=== PATIENT | female | born 1985 | race Caucasian/White ===

== ENCOUNTER 2018-05-20 20:08 | Emergency (ER) | payer OTHER ==
[~2018-05-20] VITALS: Ht 167.6 cm; Wt 108.0 kg
[~2018-05-20 20:08] MED LIST: AMOXIL500 MG OR; NO HOME MEDS; PRENATAL1 TAB OR; ULTRAM50 M1 PO; VENTOLIN HFA IN; ZITHROMAX500 MG PO; [UNRECOGNIZED DRUG - OTHER] OR
[2018-05-20 21:17] LABS: HEMATOCRIT 43.5 % (37.0-47.0); HEMOGLOBIN 14.8 g/dl (12.0-16.0); IMMATURE GRANULOCYTES 0.4 % (0.0-5.0); MEAN CELL VOLUME 97.5 fL CALC (80.0-100.0); MEAN CORPUSCULAR HGB 33.2 pG CALC (26.0-32.0); NEUT# 5.2 thou/uL (2.00-7.15); RED BLOOD COUNT 4.46 mill/uL (4.20-5.60); RED CELL DISTRI WIDTH 12.4 % (11.5-15.5)
[2018-05-20 21:36] LABS: ALBUMIN 4.3 g/dL (3.2-5.0); ALKALINE PHOSPHATASE 54 u/l (38-126); ANION GAP 15 (6-22 (CALC)); BILIRUBIN, TOTAL 0.3 mg/dL (0.0-1.4); BUN 12 mg/dL (7-17); BUN/CREATININE RATIO 15 (12-20 (CALC)); CARBON DIOXIDE 22 mmol/l (22-30); CHLORIDE 107 mmol/l (95-108); CREATININE 0.8 mg/dL (0.5-1.0); GFR > 60 ML/MIN (>=60 (CALC)); GFR FOR AFR.AMER. > 60 ML/MIN (>=60 (CALC)); POTASSIUM 3.5 mmol/l (3.5-5.1); SODIUM 141 mmol/l (137-146)
[2018-05-20 21:50] LABS: SGOT/AST 27 u/l (14-36)
[2018-05-20] MEDS ORDERED: IBUPROFEN600 MG PO (23:54)
[2018-05-20 23:59] VITALS: BP 155/74
== END 2018-05-20 23:59 | disposition home or self-care (01) | DRG 605 ==
LOC: ED 20:08
PROVIDERS: Emergency Medicine
DX: S10.93XA Contusion of unspecified part of neck, initial encounter (principal); R10.9 Unspecified abdominal pain; F17.200 Nicotine dependence, unspecified, uncomplicated; V43.52XA Car driver injured in collision with other type car in traffic accident, initial encounter
CPT/HCPCS: Q9967

== ENCOUNTER 2018-05-24 00:05 | Emergency (ER) | payer OTHER ==
[~2018-05-24] VITALS: Ht 167.6 cm; Wt 109.0 kg
[~2018-05-24 00:05] MED LIST changes: +IBUPROFEN600 MG PO
[2018-05-24] MEDS ORDERED: ORPHENADRINE100 MG PO (03:17)
[2018-05-24 03:39] VITALS: BP 160/87
== END 2018-05-24 03:39 | disposition home or self-care (01) | DRG 103 ==
LOC: ED 00:05
DX: R51 Headache (principal); S16.1XXA Strain of muscle, fascia and tendon at neck level, initial encounter; V89.1XXA Person injured in unspecified nonmotor-vehicle accident, nontraffic, initial encounter; F17.210 Nicotine dependence, cigarettes, uncomplicated

== ENCOUNTER 2019-10-19 | Emergency (ER) | payer BC ==
[~2019-10-19] MED LIST changes: +ORPHENADRINE100 MG PO
[2019-10-19] MEDS ORDERED: ATENOLOL50 MG PO (19:55)
[2019-10-19] MEDS ORDERED: TOPAMAX50 M1 PO (19:56)
[2019-10-19 20:28] LABS: URINE BILIRUBIN - DIPSTICK NEGATIVE (NEGATIVE); URINE BLOOD DIPSTICK TRACE-INTACT (NEGATIVE); URINE COLOR YELLOW; URINE GLUCOSE - DIPSTICK NEGATIVE (NEGATIVE); URINE KETONE NEGATIVE (NEGATIVE); URINE LEUK ESTERASE NEGATIVE (NEGATIVE); URINE NITRITE - DIPSTICK NEGATIVE (Negative); URINE PROTEIN - DIPSTICK NEGATIVE (NEG-TRACE); URINE SPECIFIC GRAVITY >=1.030; URINE UROBILINOGEN - DIPSTICK 0.2 E.U./dL (0.2)
[2019-10-19] MEDS ORDERED: IBUPROFEN600 MG PO (22:08)
[2019-10-19] MEDS ORDERED: FLEXERIL PO (22:08)
[2019-10-19] MEDS ORDERED: TRAMADOL HYDROC50 MG PO (22:08)
== END 2019-10-19 22:20 | disposition home or self-care (01) | DRG 563 ==
DX: S39.012A Strain of muscle, fascia and tendon of lower back, initial encounter (principal); F17.200 Nicotine dependence, unspecified, uncomplicated; X58.XXXA Exposure to other specified factors, initial encounter

== ENCOUNTER 2021-08-28 10:50 | Emergency (ER) | payer MEDICAID ==
[~2021-08-28] VITALS: Ht 167.6 cm; Wt 106.0 kg
[~2021-08-28 10:50] MED LIST changes: +ATENOLOL50 MG PO; +FLEXERIL PO; +TOPAMAX50 M1 PO; +TRAMADOL HYDROC50 MG PO
[2021-08-28] MEDS ORDERED: NAPROXEN500 MG PO (11:44)
[2021-08-28] MEDS ORDERED: VITAMIN D PO (11:48)
[2021-08-28 11:51] VITALS: BP 169/75
== END 2021-08-28 12:05 | disposition home or self-care (01) ==
LOC: ED 10:50
DX: S93.402A Sprain of unspecified ligament of left ankle, initial encounter (principal); F17.200 Nicotine dependence, unspecified, uncomplicated; W17.2XXA Fall into hole, initial encounter; Y92.009 Unspecified place in unspecified non-institutional (private) residence as the place of occurrence of the external cause

== ENCOUNTER 2024-08-03 17:43 | Emergency (ER) | payer OTHER ==
[~2024-08-03] VITALS: Ht 167.6 cm; Wt 102.5 kg
[~2024-08-03 17:43] MED LIST changes: +NAPROXEN500 MG PO; +VITAMIN D PO
[2024-08-03 18:52] VITALS: BP 145/96
[2024-08-03] MEDS ORDERED: ASPIRIN 81 MG/TAB PO ONE (19:10)
[2024-08-03 19:28] LABS: BASO% 0.4 % (0-3); EOS% 1.4 % (0-8); HEMATOCRIT 45.2 % (37.0-47.0); HEMOGLOBIN 14.7 g/dl (12.0-16.0); IMMATURE GRANULOCYTES 0.5 % (0.0-5.0); LYMPH% 31.3 % (15-41); MEAN CELL VOLUME 101.1 fL CALC (80.0-100.0); MEAN CORPUSCULAR HGB 32.9 pG CALC (26.0-32.0); MEAN CORPUSCULAR HGB CONC 32.5 g/dL CAL (32.0-36.0); NEUT# 6.89 thou/uL (2.00-7.15); NEUT% 60.4 % (42-76); RED BLOOD COUNT 4.47 mill/uL (4.20-5.60); RED CELL DISTRI WIDTH 12.7 % (11.5-15.5)
[2024-08-03 19:38] LABS: ALBUMIN 4.4 g/dL (3.2-5.0); ALKALINE PHOSPHATASE 48 u/l (38-126); ANION GAP 10 (6-22 (CALC)); BILIRUBIN, TOTAL 0.7 mg/dL (0.02-1.3); BUN 7 mg/dL (7-17); BUN/CREATININE RATIO 10 (12-20 (CALC)); CARBON DIOXIDE 26 mmol/l (22-30); CHLORIDE 105 mmol/l (95-108); CREATININE 0.8 mg/dL (0.5-1.0); ESTIMATED GFR 95 ML/MIN (>=90 (CALC)); LIPASE 65 u/l (23-300); POTASSIUM 3.8 mmol/l (3.5-5.1); SGOT/AST 45 u/l (14-36); SODIUM 137 mmol/l (137-146); TOTAL PROTEIN 7.4 g/dL (6.3-8.2)
[2024-08-03] MEDS ORDERED: ACETAMINOPHEN 325 MG/TAB PO PRN (21:10)
[2024-08-03] MEDS ORDERED: MAGNESIUM HYDROXIDE 30 ML UDC PO PRN (21:10)
[2024-08-03 21:19] VITALS: BP 150/81
[2024-08-03 21:24] VITALS: BP 150/81
[2024-08-04] MEDS ORDERED: ASPIRIN EC 81 MG/TAB PO SCH (09:00)
[2024-08-04] MEDS ORDERED: ENOXAPARIN SODIUM 40 MG/0.4 ML SYR SC SCH (21:00)
== END 2024-08-03 21:25 | disposition left against medical advice (07) | DRG 313 ==
LOC: ED 17:43 → ED-I 20:50 → ED 21:25
PROVIDERS: Nurse Practitioner
DX: R07.9 Chest pain, unspecified (principal); Z53.29 Procedure and treatment not carried out because of patient's decision for other reasons